=== PATIENT | female | born 1955 | race Caucasian/White ===

== ENCOUNTER 2017-08-14 08:06 | Day surgery (SDC) | payer OTHER ==
[2017-08-14] MEDS ORDERED: PROPOFOL 500 MG/50 ML EMU IV ONE (08:56)
[2017-08-14] MEDS ORDERED: LIDOCAINE HCL 1% MPF SOL ONE (08:56)
[2017-08-14 10:06] VITALS: BP 134/87; PULSE 66; RESP 20; TEMP 97.1; O2SAT 96
== END 2017-08-14 10:15 | disposition home or self-care (01) | DRG 951 ==
LOC: SURG 08:06
PROVIDERS: ATTEND Surgery
DX: Z12.11 Encounter for screening for malignant neoplasm of colon (principal); D12.3 Benign neoplasm of transverse colon; K57.30 Diverticulosis of large intestine without perforation or abscess without bleeding
CPT/HCPCS: 99001; J2001; J2704